=== PATIENT | male | born 1960 | race Caucasian/White ===

== ENCOUNTER 2019-05-11 14:18 | Outpatient (CLI) | payer OTHER ==
--- NOTE | 2019-05-11 15:52 | CT ---
EXAM: Abdomen and pelvic CT scan with and without contrast: HISTORY: Renal mass COMPARISON: None FINDINGS: The visualized lung bases are clear. Liver: Fatty changes in the liver Gallbladder:Unremarkable. Pancreas:Unremarkable Spleen:Unremarkable. Adrenal glands:Unremarkable. Kidneys:Nonobstructing left renal calculus. Multiple renal cysts noted bilaterally. No evidence for enhancing solid mass. No evidence for bowel obstruction. No CT evidence for acute appendicitis. The urinary bladder is unremarkable. Reproductive system:Unremarkable No abscess, adenopathy, or abnormal fluid collection within the abdomen or pelvis. IMPRESSION: Nonobstructing left renal calculus. Multiple bilateral renal cysts. No evidence for solid enhancing m ass. Fatty changes in the liver. Evidence for a small hiatal hernia.
[2019-05-11] MEDS ORDERED: ISOVUE-370 76%-LOCM 1 ML ONE (16:42)
== END 2019-05-11 14:19 | disposition home or self-care (01) ==
LOC: BICCT 14:18
PROVIDERS: ATTEND Family Medicine
DX: N28.89 Other specified disorders of kidney and ureter (principal); N20.0 Calculus of kidney; K76.0 Fatty (change of) liver, not elsewhere classified; K44.9 Diaphragmatic hernia without obstruction or gangrene
CPT/HCPCS: 74178; Q9966

== ENCOUNTER 2021-06-19 16:51 | Inpatient (IN) | payer BC, OTHER ==
[~2021-06-19 16:51] MED LIST: Heparin 10,000 UNITS/ 10 ML VIAL ONE; Iopamidol 370 76% 100 ML VIAL ONE; Iopamidol 370 76% 50 ML VIAL FS ONE; Metoprolol Tartrate 5 MG/5 ML VIAL ONE
[2021-06-19] MEDS ORDERED: Nitroglycerin 2% Ointment 1 INCH/1 GM Packet ONE (17:09)
[2021-06-19] MEDS ORDERED: Lidocaine 1% (PF) 30 ML VIAL ONE (17:12)
[2021-06-19 17:13] LABS: #Eosinphils 0.2 thou/uL (0.0-0.7); #Lymphocytes 1.8 thou/uL (1.20-3.40); #Monocytes 0.7 thou/uL (0.11-0.59); #Neutrophils 6.8 thou/uL (1.40-6.50); %Basophils 0.4 % (0.0-1.0); %Eosinophils 2.1 % (0.0-10.0); %Lymphocytes 18.8 % (21.0-51.0); %Monocytes 7.5 % (0.0-10.0); %Neutrophils 71.2 % (42.0-75.0); Hemoglobin 16.2 g/dL (14.0-18.0); Mean Corpuscular HGB CONC 33.6 g/dL (32.0-36.0); Mean Corpuscular Hemoglobin 31.1 pg (27.0-31.0); Mean Corpuscular Volume 92.7 fL (78.0-98.0); Mean Platelet Volume 7.5 fL (7.4-10.4); Platelet Count 301 thou/uL (130-400); RBC Distribution Width 13.5 % (11.5-14.5); Red Blood Cell (RBC) Count 5.21 mill/uL (4.70-6.10); White Blood Cell (WBC) Count 9.6 thou/uL (4.8-10.8)
[2021-06-19 17:35] LABS: ALT (SGPT) 23 U/L (8-55); AST (SGOT) 29 U/L (5-34); Albumin 4.2 g/dL (3.5-5.0); Alkaline Phosphatase 61 U/L (40-110); Anion Gap 15 mmol/L (10-20); BUN (Urea Nitrogen) 14 mg/dL (8.4-25.7); Bilirubin, Total 0.5 mg/dL (0.2-1.2); Calc. Creatinine Clearance 0 mL/min (70-130); Calcium 9.2 mg/dL (7.8-10.44); Carbon Dioxide 21 mmol/L (22-29); Chloride 106 mmol/L (98-107); Globulin 3.7 g/dL (2.4-3.5); Glucose 147 mg/dL (70-105); Lipase 16 U/L (8-78); Potassium 4.3 mmol/L (3.5-5.1); Protein, Total 7.9 g/dL (6.0-8.3); Sodium 138 mmol/L (136-145)
[2021-06-19] MEDS ORDERED: Midazolam HCl 2 mg/2 ml Vial ONE (17:37)
[2021-06-19] MEDS ORDERED: Ondansetron PF 4 MG/2 ML Vial ONE (17:37)
[2021-06-19] MEDS ORDERED: Fentanyl 100 MCG/2 ML VIAL ONE (17:37)
[2021-06-19] MEDS ORDERED: Atropine Sulfate 1 mg/10 ml Syringe ONE (17:37)
[2021-06-19] MEDS ORDERED: Heparin 10,000 UNITS/ 10 ML VIAL ONE (17:48)
[2021-06-19] MEDS ORDERED: TICAGRELOR 90 MG TABLET ONE (17:49)
[2021-06-19] MEDS ORDERED: Nitroglycerin 0.4 MG TAB (25 Tab Bottle) SL PRN (18:29)
[2021-06-19] MEDS ORDERED: Mag-Al 1200 mg/1200 mg/30 ML UDCUP PO PRN (18:29)
[2021-06-19] MEDS ORDERED: traMADol HCl 50 MG TAB PO PRN (18:29)
[2021-06-19] MEDS ORDERED: Milk Of Magnesia 30 ML UDCUP PO PRN (18:29)
[2021-06-19] MEDS ORDERED: cloNIDine 0.1 MG TAB PO PRN (18:29)
[2021-06-19] MEDS ORDERED: Acetaminophen/Codeine 30-300mg Tablet PO PRN (18:29)
[2021-06-19] MEDS ORDERED: Morphine 2 MG/ML VIAL SLOW IVP PRN (18:29)
[2021-06-19] MEDS ORDERED: Sodium Chloride 0.9% 1,000 ML IV SCH (18:30)
[2021-06-19] MEDS ORDERED: Morphine 4 MG/ML VIAL ONE (19:28)
[2021-06-19 20:11] LABS: CKMB 2.8 ng/mL (0-6.6)
[2021-06-19 20:12] LABS: Troponin I 0.077 ng/mL (< 0.028)
[2021-06-19] MEDS: Atorvastatin Calcium 40 MG TAB PO SCH (20:41)
[2021-06-19] MEDS: TICAGRELOR 90 MG TABLET PO SCH (20:42)
[2021-06-20] MEDS ORDERED: Morphine 4 MG/ML VIAL ONE (00:23)
[2021-06-20] MEDS: Zolpidem Tartrate 5 MG TAB PO PRN ×2 (00:28→22:12)
[2021-06-20 01:51] LABS: CKMB 6.7 ng/mL (0-6.6); Troponin I 0.784 ng/mL (< 0.028)
[2021-06-20 07:16] LABS: Hemoglobin A1c 5.5 % (4.0-6.0)
[2021-06-20 07:17] LABS: #Basophils 0.1 thou/uL (0.0-0.2); #Eosinphils 0.3 thou/uL (0.0-0.7); #Monocytes 1.2 thou/uL (0.11-0.59); #Neutrophils 7.2 thou/uL (1.40-6.50); %Basophils 0.5 % (0.0-1.0); %Eosinophils 2.6 % (0.0-10.0); %Lymphocytes 18.3 % (21.0-51.0); %Monocytes 11.1 % (0.0-10.0); %Neutrophils 67.4 % (42.0-75.0); Hemoglobin 14.3 g/dL (14.0-18.0); Mean Corpuscular HGB CONC 33.3 g/dL (32.0-36.0); Mean Corpuscular Hemoglobin 30.9 pg (27.0-31.0); Mean Corpuscular Volume 92.7 fL (78.0-98.0); Mean Platelet Volume 7.8 fL (7.4-10.4); Platelet Count 271 thou/uL (130-400); RBC Distribution Width 13.5 % (11.5-14.5); Red Blood Cell (RBC) Count 4.62 mill/uL (4.70-6.10); White Blood Cell (WBC) Count 10.7 thou/uL (4.8-10.8)
[2021-06-20 07:40] LABS: ALT (SGPT) 21 U/L (8-55); AST (SGOT) 26 U/L (5-34); Albumin 3.7 g/dL (3.5-5.0); Alkaline Phosphatase 51 U/L (40-110); Anion Gap 13 mmol/L (10-20); BUN (Urea Nitrogen) 15 mg/dL (8.4-25.7); Bilirubin, Total 0.5 mg/dL (0.2-1.2); Calc. Creatinine Clearance 143 mL/min (70-130); Calcium 8.7 mg/dL (7.8-10.44); Carbon Dioxide 23 mmol/L (22-29); Cardiac Risk 4.8 (Less than 4.5); Chloride 105 mmol/L (98-107); Cholesterol 144 mg/dl (< 200 Desired); Globulin 2.8 g/dL (2.4-3.5); Glucose 105 mg/dL (70-105); HDL Cholesterol 30 mg/dL (>60 Neg Risk); LDL Cholesterol, Calculated 92 mg/dL; Potassium 3.8 mmol/L (3.5-5.1); Protein, Total 6.5 g/dL (6.0-8.3); Sodium 137 mmol/L (136-145); Triglycerides 110 mg/dL (Less than 150)
[2021-06-20 07:58] LABS: Free T4 (Free Thyroxine) 0.83 ng/dL (0.70-1.48); Thyroid Stimulating Hormone 5.7382 uIU/mL (0.35-4.94)
[2021-06-20] MEDS: Aspirin Chewable 81 MG TAB PO SCH (08:28)
[2021-06-20] MEDS: TICAGRELOR 90 MG TABLET PO SCH ×2 (08:28→20:24)
[2021-06-20] MEDS: Enoxaparin Sodium 40 MG/0.4 ML SYRINGE SC SCH (08:28)
[2021-06-20 12:21] LABS: SARS-CoV-2 PCR by NAA Not Detected (NotDetected)
[2021-06-20] MEDS: Atorvastatin Calcium 40 MG TAB PO SCH (20:23)
[2021-06-21 04:07] LABS: #Basophils 0.1 thou/uL (0.0-0.2); #Eosinphils 0.3 thou/uL (0.0-0.7); #Monocytes 0.9 thou/uL (0.11-0.59); %Basophils 0.9 % (0.0-1.0); %Eosinophils 3.5 % (0.0-10.0); %Lymphocytes 24.7 % (21.0-51.0); %Monocytes 10.5 % (0.0-10.0); %Neutrophils 60.4 % (42.0-75.0); Hemoglobin 14.3 g/dL (14.0-18.0); Mean Corpuscular HGB CONC 32.7 g/dL (32.0-36.0); Mean Corpuscular Hemoglobin 30.5 pg (27.0-31.0); Mean Corpuscular Volume 93.2 fL (78.0-98.0); Mean Platelet Volume 7.8 fL (7.4-10.4); Platelet Count 249 thou/uL (130-400); RBC Distribution Width 13.4 % (11.5-14.5); White Blood Cell (WBC) Count 8.3 thou/uL (4.8-10.8)
[2021-06-21 04:24] LABS: ALT (SGPT) 18 U/L (8-55); AST (SGOT) 28 U/L (5-34); Albumin 3.7 g/dL (3.5-5.0); Alkaline Phosphatase 50 U/L (40-110); Anion Gap 13 mmol/L (10-20); BUN (Urea Nitrogen) 11 mg/dL (8.4-25.7); Bilirubin, Total 0.8 mg/dL (0.2-1.2); Calc. Creatinine Clearance 165 mL/min (70-130); Calcium 8.6 mg/dL (7.8-10.44); Carbon Dioxide 22 mmol/L (22-29); Chloride 103 mmol/L (98-107); Globulin 2.8 g/dL (2.4-3.5); Glucose 92 mg/dL (70-105); Potassium 3.9 mmol/L (3.5-5.1); Protein, Total 6.5 g/dL (6.0-8.3); Sodium 134 mmol/L (136-145)
[2021-06-21] MEDS: TICAGRELOR 90 MG TABLET PO SCH (08:23)
[2021-06-21] MEDS: Enoxaparin Sodium 40 MG/0.4 ML SYRINGE SC SCH (08:23)
[2021-06-21] MEDS: Aspirin Chewable 81 MG TAB PO SCH (08:23)
[2021-06-21 10:59] VITALS: BP 140/82
[2021-06-21 12:02] VITALS: TEMP 97.9
[2021-06-23] MEDS ORDERED: FLU VACC QS2021-22(6MOS UP)/PF 60 MCG/0.5 ML SYRINGE IM ONE (09:00)
== END 2021-06-21 15:06 | disposition home or self-care (01) | DRG 247 ==
LOC: ERS 16:51 → SURG A 17:16 → PACU-TCU 22:24 → CCU 06-20 05:58
PROVIDERS: ADMIT Internal Medicine Cardiovascular Disease; ATTEND Internal Medicine Cardiovascular Disease
PROC: 027034Z Dilation of Coronary Artery, One Artery with Drug-eluting Intraluminal Device, Percutaneous Approach (ICD-10-PCS; principal; 2021-06-19)
PROC: 4A023N7 Measurement of Cardiac Sampling and Pressure, Left Heart, Percutaneous Approach (ICD-10-PCS; 2021-06-19)
PROC: B2101ZZ Fluoroscopy of Single Coronary Artery using Low Osmolar Contrast (ICD-10-PCS; 2021-06-19)
DX: I21.19 ST elevation (STEMI) myocardial infarction involving other coronary artery of inferior wall (principal); I25.10 Atherosclerotic heart disease of native coronary artery without angina pectoris; Z20.822 Contact with and (suspected) exposure to COVID-19
CPT/HCPCS: 36415; 36416; 71045; 80053; 80061; 82553; 83036; 83690; 83880; 84439; 84443; 84481; 84484; 85025; 85347; 92941; 93005; 93010; 93306; 93458; 93798; 99152; 99153; C1769; C1874; C9606; J0461; J1644; J1650; J2001; J2250; J2270; J2405; J3010; J7050; Q9967; U0003; U0005

== ENCOUNTER 2021-08-26 06:36 | Outpatient (CLI) | payer OTHER ==
[2021-08-26 09:14] LABS: #Basophils 0.1 10x3/uL (0.0-0.2); #Eosinphils 0.3 10x3/uL (0.0-0.5); #Monocytes 0.8 10x3/uL (0.0-1.1); #Neutrophils 5.4 10x3/uL (1.5-8.4); %Basophils 0.8 % (0.0-2.0); %Lymphocytes 19.2 % (18.0-47.0); %Monocytes 9.7 % (0.0-10.0); %Neutrophils 65.9 % (40.0-75.0); Hemoglobin 14.8 g/dL (13.5-17.5); Mean Corpuscular HGB CONC 32.7 g/dL (32.0-36.0); Mean Corpuscular Hemoglobin 29.8 pg (27.0-33.0); Mean Corpuscular Volume 91.1 fl (81.2-95.1); Mean Platelet Volume 10.3 fl (7.4-10.4); Platelet Count 300 10x3/uL (150-450); RBC Distribution Width 14.3 % (11.5-14.5); Red Blood Cell (RBC) Count 4.96 10x6/uL (4.32-5.72); White Blood Cell (WBC) Count 8.3 10x3/uL (3.5-10.5)
[2021-08-26 10:07] LABS: ALT (SGPT) 25 U/L (8-55); AST (SGOT) 21 U/L (5-34); Albumin 4.1 g/dL (3.5-5.0); Alkaline Phosphatase 72 U/L (40-110); Anion Gap 14 mmol/L (10-20); BUN (Urea Nitrogen) 11 mg/dL (8.4-25.7); Bilirubin, Total 0.4 mg/dL (0.2-1.2); Calc. Creatinine Clearance 0 mL/min (70-130); Calcium 8.8 mg/dL (7.8-10.44); Carbon Dioxide 23 mmol/L (22-29); Cardiac Risk 3.1 (Less than 4.5); Chloride 106 mmol/L (98-107); Cholesterol 98 mg/dl (< 200 Desired); Globulin 2.9 g/dL (2.4-3.5); Glucose 113 mg/dL (70-105); HDL Cholesterol 32 mg/dL (>60 Neg Risk); LDL Cholesterol, Calculated 52 mg/dL; Potassium 4.1 mmol/L (3.5-5.1); Sodium 139 mmol/L (136-145); Triglycerides 71 mg/dL (Less than 150)
[2021-08-26 15:07] LABS: SARS-CoV-2 PCR by NAA Not Detected (NotDetected)
== END 2021-08-26 06:37 | disposition home or self-care (01) ==
LOC: LABBT 06:36
PROVIDERS: ATTEND Internal Medicine Cardiovascular Disease
DX: Z01.812 Encounter for preprocedural laboratory examination (principal); I25.5 Ischemic cardiomyopathy; Z20.822 Contact with and (suspected) exposure to COVID-19
CPT/HCPCS: 80053; 80061; 85025; U0003; U0005

== ENCOUNTER 2021-08-28 06:04 | Day surgery (SDC) | payer BC ==
[2021-08-27 09:30] VITALS: BMI 37.3
[2021-08-28] MEDS ORDERED: Verapamil 5 MG/2 ML VIAL ONE (06:40)
[2021-08-28] MEDS ORDERED: Nitroglycerin 100MG/250ML BOT 250 ML ONE (06:40)
[2021-08-28] MEDS ORDERED: Heparin 10,000 UNITS/ 10 ML VIAL ONE (06:40)
[2021-08-28] MEDS ORDERED: Midazolam HCl 2 mg/2 ml Vial ONE (07:03)
[2021-08-28] MEDS ORDERED: Fentanyl 100 MCG/2 ML VIAL ONE (07:03)
[2021-08-28] MEDS ORDERED: TICAGRELOR 90 MG TABLET ONE (07:15)
[2021-08-28] MEDS ORDERED: Iopamidol 370 76% 100 ML VIAL ONE (08:39)
[2021-08-28] MEDS ORDERED: Iopamidol 370 76% 50 ML VIAL FS ONE (08:39)
== END 2021-08-28 10:50 | disposition home or self-care (01) ==
LOC: CCL 06:04
PROVIDERS: ATTEND Internal Medicine Cardiovascular Disease
PROC: 4A023N7 Measurement of Cardiac Sampling and Pressure, Left Heart, Percutaneous Approach (ICD-10-PCS; principal; 2021-08-28)
PROC: B2111ZZ Fluoroscopy of Multiple Coronary Arteries using Low Osmolar Contrast (ICD-10-PCS; principal; 2021-08-28)
DX: I25.5 Ischemic cardiomyopathy (principal); I25.10 Atherosclerotic heart disease of native coronary artery without angina pectoris; I25.2 Old myocardial infarction; F17.290 Nicotine dependence, other tobacco product, uncomplicated; Z79.02 Long term (current) use of antithrombotics/antiplatelets; Z79.82 Long term (current) use of aspirin; Z79.899 Other long term (current) drug therapy; Z95.5 Presence of coronary angioplasty implant and graft
CPT/HCPCS: 93458; 99152; 99153; C1769; J1644; J2250; J3010; Q9967